=== PATIENT | female | born 1940 | race Asian ===

== ENCOUNTER 2016-11-21 13:46 | Outpatient (CLI) | payer MEDICARE, OTHER | END 2016-11-21 23:59 | DX: I50.9 Heart failure, unspecified (principal); I42.8 Other cardiomyopathies; Z79.01 Long term (current) use of anticoagulants; Z51.81 Encounter for therapeutic drug level monitoring ==

== ENCOUNTER 2016-12-10 13:49 | Outpatient (CLI) | payer MEDICARE, OTHER | END 2016-12-10 23:59 | DX: I50.9 Heart failure, unspecified (principal); I42.8 Other cardiomyopathies; Z79.01 Long term (current) use of anticoagulants ==

== ENCOUNTER 2017-01-02 13:11 | Outpatient (CLI) | payer MEDICARE, OTHER | END 2017-01-02 23:59 | DX: I10 Essential (primary) hypertension (principal); R53.83 Other fatigue ==

== ENCOUNTER 2017-01-02 13:13 | Outpatient (CLI) | payer MEDICARE, OTHER | END 2017-01-02 23:59 | DX: Z79.01 Long term (current) use of anticoagulants (principal); Z51.81 Encounter for therapeutic drug level monitoring; I50.9 Heart failure, unspecified; I42.8 Other cardiomyopathies ==

== ENCOUNTER 2017-02-02 14:35 | Outpatient (CLI) | payer MEDICARE, OTHER | END 2017-02-02 14:36 | DX: Z79.01 Long term (current) use of anticoagulants (principal); Z51.81 Encounter for therapeutic drug level monitoring; I50.9 Heart failure, unspecified; I42.8 Other cardiomyopathies ==

== ENCOUNTER 2017-08-11 12:43 | Outpatient (CLI) | payer MEDICARE, OTHER ==
[2017-08-11 13:24] LABS: BASOPHILS # (AUTO) 0.1 10^3/uL (0.0-0.1); EOSINOPHILS # (AUTO) 0.4 10^3/uL (0.0-0.7); EOSINOPHILS % (AUTO) 3.6 %; HCT - HEMATOCRIT 37.1 % (37.0-47.0); HGB - HEMOGLOBIN 12.5 g/dL (12.0-16.0); LYMPHOCYTES # (AUTO) 1.4 10^3/uL (1.5-3.5); MEAN CORPUSCULAR HEMOGLOBIN 31.9 pg (27.0-31.0); MEAN CORPUSCULAR HGB CONC 33.6 g/dL (32.0-36.0); MEAN PLATELET VOLUME 6.4 fL (7.9-10.8); MONOCYTES # (AUTO) 0.3 10^3/uL (0.0-1.0); MONOCYTES % (AUTO) 3.5 %; NEUTROPHILS # (AUTO) 7.4 10^3/uL (1.5-6.6); NEUTROPHILS % (AUTO) 76.9 %; NUCLEATED RED BLOOD CELLS AUTO 0.1 /100WBC; RED CELL DISTRIBUTION WIDTH 16.6 % (12.0-15.0); UNCORRECTED WHITE BLOOD COUNT 9.7 x10^3/uL; WHITE BLOOD COUNT 9.7 x10^3/uL (4.8-10.8)
[2017-08-11 13:37] LABS: BILIRUBIN,TOTAL 0.5 mg/dL (0.2-1.0); CALCIUM 9.5 mg/dL (8.5-10.3); CREATININE 1.2 mg/dL (0.4-1.0); POTASSIUM 4.8 mmol/L (3.5-5.0)
[2017-08-11] MEDS ORDERED: IOPAMIDOL-300 100 ML VIAL ONE (14:56)
[2017-08-11] MEDS ORDERED: IOPAMIDOL-300 100 ML VIAL IVP ONE ×2 (15:31)
--- NOTE | 2017-08-11 19:06 | XRAY Report ---
TWO VIEW CHEST: 08/11/2017 CLINICAL INDICATION: COPD exacerbation. Frontal and lateral views of the chest demonstrate a normal cardiac silhouette. A three lead pacemak er/AICD is in place. The lungs are hyperinflated, but clear. No effusion or pneumothorax is present . IMPRESSION: COPD, BUT NO EVIDENCE OF ACUTE CARDIOPULMONARY DISEASE. JOB #: [id number] EXT JOB #:[id number]
--- NOTE | 2017-08-12 14:02 | CT Report ---
EXAM: CT CHEST 08/11/2017 INDICATION: Dyspnea on exertion. TECHNIQUE: Axial CT images of the chest were obtained with 80 mL Isovue-300 intravenously. In accordance with CT protocol optimization, one or more of the following dose reduction techniques were utilized for this exam: automated exposure control, adjustment of mA and/or KV based on patient size, or use of iterative reconstructive technique. COMPARISON: No previous CT is available for comparison. FINDINGS: The heart and great vessels were unremarkable. Pacemaker is in place. No hilar or mediastinal lymphadenopathy is seen. There is no evidence of pulmonary embolus. The lungs demonstrate emphysema. No focal infiltrate, effusion, or pneumothorax is present. Limited evaluation of upper abdominal structures demonstrates normal adrenal glands. Osseous structures demonstrate degenerative changes. IMPRESSION: EMPHYSEMA. NO EVIDENCE OF PULMONARY EMBOLUS OR OTHER ETIOLOGY FOR DYSPNEA. JOB #: [id number] EXT JOB #: [id number] [facility]
== END 2017-08-11 12:44 | disposition home or self-care (01) ==
LOC: LAB 12:43 → DI 12:44
PROVIDERS: ATTEND Family Medicine
DX: J43.9 Emphysema, unspecified (principal); I50.9 Heart failure, unspecified
CPT/HCPCS: 36415; 71020; 71260; 80053; 83880; 85025; Q9967

== ENCOUNTER 2018-06-04 13:17 | Outpatient (CLI) | payer MEDICARE, OTHER ==
[2018-06-04 18:50] LABS: BASOPHILS % (AUTO) 0.9 %; EOSINOPHILS # (AUTO) 0.3 10^3/uL (0.0-0.7); EOSINOPHILS % (AUTO) 5.8 %; LYMPHOCYTES # (AUTO) 0.9 10^3/uL (1.5-3.5); LYMPHOCYTES % (AUTO) 16.2 %; MEAN CORPUSCULAR HEMOGLOBIN 32.4 pg (27.0-31.0); MEAN CORPUSCULAR HGB CONC 33.2 g/dL (32.0-36.0); MEAN CORPUSCULAR VOLUME 97.5 fL (81.0-99.0); MEAN PLATELET VOLUME 7.3 fL (7.9-10.8); MONOCYTES # (AUTO) 0.6 10^3/uL (0.0-1.0); MONOCYTES % (AUTO) 10.7 %; NEUTROPHILS # (AUTO) 3.6 10^3/uL (1.5-6.6); NEUTROPHILS % (AUTO) 66.4 %; PLT - PLATELET COUNT 154 10^3/uL (130-450); RED CELL DISTRIBUTION WIDTH 15.9 % (12.0-15.0); WHITE BLOOD COUNT 5.5 x10^3/uL (4.8-10.8)
[2018-06-04 19:11] LABS: ALBUMIN 4.5 g/dL (3.2-5.5); ALBUMIN/GLOBULIN RATIO 1.9 (1.0-2.2); BILIRUBIN,TOTAL 0.9 mg/dL (0.2-1.0); CALCIUM 9.1 mg/dL (8.5-10.3); CREATININE 1.2 mg/dL (0.4-1.0); TOTAL PROTEIN 6.9 g/dL (6.7-8.2)
== END 2018-06-04 13:18 | disposition home or self-care (01) ==
LOC: LAB.WCP 13:17
PROVIDERS: ATTEND Family Medicine
DX: Z79.899 Other long term (current) drug therapy (principal); I50.9 Heart failure, unspecified; R53.83 Other fatigue
CPT/HCPCS: 36415; 80053; 84443; 85025

== ENCOUNTER 2018-08-24 11:50 | Outpatient (CLI) | payer MEDICARE, OTHER | END 2018-08-24 11:51 | disposition critical access hospital (66) | LOC: EMS 11:50 | PROVIDERS: ATTEND Surgery | DX: M25.551 Pain in right hip (principal); R11.2 Nausea with vomiting, unspecified | CPT/HCPCS: A0425; A0429 ==

== ENCOUNTER 2018-08-24 12:22 | Emergency (ER) | payer MEDICARE, OTHER ==
[2018-08-24 12:39] VITALS: BP 131/74
[2018-08-24] MEDS ORDERED: HYDROcod/ACETAM 5/325 MG TABLET PO STA (12:55)
[2018-08-24] MEDS ORDERED: DEXAMETHASONE 10 MG/ML VIAL PO STA (12:55)
--- NOTE | 2018-08-24 12:58 | ED Physician Documentation ---
PD HPI BACK PAIN - Stated complaint Stated Complaint: R HIP PX - Chief complaint Chief Complaint: Ext Problem - History obtained from History obtained from: Patient, Family - History of Present Illness Timing - onset: How many days ago (5) Timing - duration: Days Timing - details: Abrupt onset, Still present Location: Lower, Right Quality: Pain, Spasm, Sharp Associated symptoms: No: Fever, Weakness, Numbness, Incontinent of urine, Unable to urinate, Hematuria, Incontinent of stool Improves with: Rest, Position Worsened by: Movement Similar symptoms before: No diagnosis Recently seen: Not recently seen - Additional information Additional information: 78-year-old female with a history of emphysema has developed pain in the right l ower back extending into the buttocks and down the right leg. She started with pain in the lateral aspect of her right calf that is extended up to the lateral aspect of the thigh and now into the back as well. She does not note a specific injury that led to this exacerbation of pain. Review of Systems Constitutional: denies: Fever Eyes: denies: Decreased vision Ears: denies: Ear pain Nose: denies: Congestion Throat: denies: Sore throat Cardiac: denies: Chest pain / pressure, Palpitations Respiratory: reports: Dyspnea GI: denies: Abdominal Pain, Abdominal Swelling, Nausea, Vomiting : denies: Dysuria, Frequency Skin: denies: Rash Musculoskeletal: reports: Back pain, Extremity pain. denies: Neck pain Neurologic: denies: Generalized weakness, Focal weakness, Numbness PD PAST MEDICAL HISTORY - Present Medications Home Medications: Ambulatory Orders Medication Instructions Recorded Confirmed Cyclobenzaprine [Flexeril] 10 mg PO TID PRN #20 tablet 08/24/18 Hydrocodone/Acetaminophen 1 - 2 each PO Q6H PRN #14 tablet 08/24/18 [Hydrocodon-Acetaminophen 5-325] - Allergies Allergies/Adverse Reactions: Allergies Allergy/AdvReac Type Severity Reaction Status Date / Time antibiotic Allergy Unknown Uncoded 08/24/18 12:39 PD ED PE NORMAL - Vitals Vital signs reviewed: Yes - General General: Alert and oriented X 3, Well developed/nourished, Other (hydrologic engineer tone and flat affect) - HEENT HEENT: Atraumatic, PERRL, EOMI - Respiratory Respiratory: No respiratory distress - Back Back: No CVA TTP, Other (There is tenderness to the paraspinous muscles on the right side extending into the sciatic notch. ) - Derm Derm: Normal color, Warm and dry, No rash - Extremities Extremities: No deformity, No edema, Other (There is normal ROM of the LE and there is no tenderness to the soft tissues of the LE posterior or lateral) - Neuro Neuro: Alert and oriented X 3, clinical psychology teacher 2-12 intact, No motor deficit, No sensory deficit, Normal speech Eye Opening: Spontaneous Motor: Obeys Commands Verbal: Oriented GCS Score: 15 - Psych Psych: Normal mood, Normal affect Results - Vitals Vitals: Vital Signs - 24 hr 08/24/18 12:28 Temperature 36.2 C L Heart Rate 100 Respiratory 18 Rate Blood Pressure 131/74 H O2 Saturation 100 Oxygen O2 Source Room air PD MEDICAL DECISION MAKING - ED course Complexity details: reviewed old records, considered differential, d/w patient, d/w family ED course: 78-year-old female with a history of sciatica on the right side is administered dexamethasone 10 mg orally and hydrocodone. Will place her on some pain medication muscle relaxant. I have indicated the patient that she is to expect some improvement of the for the next 2-3 days and should she have a recurrence of this or worsening of this pain to follow-up with her primary care doctor as further testing is indicated. Departure - Departure Disposition: 01 Home, Self Care Clinical Impression: Sciatica Qualifiers: Laterality: right Qualified Code(s): M54.31 - Sciatica, right side Condition: Stable Instructions: ED Sciatica Follow-Up: Estefany Cazares MD [Primary Care Provider] - Prescriptions: Cyclobenzaprine [Flexeril] 10 mg PO TID PRN #20 tablet PRN Reason: Spasms Hydrocodone/Acetaminophen [Hydrocodon-Acetaminophen 5-325] 1 - 2 each PO Q6H PRN #14 tablet PRN Reason: pain
[2018-08-24] MEDS ORDERED: CHERRY SYRUP 10 ML UDC PO ONE (13:09)
== END 2018-08-24 13:10 | disposition home or self-care (01) ==
LOC: EDUNIT# → ED 12:22
DX: M54.31 Sciatica, right side (principal)
CPT/HCPCS: 99283; A9270

== ENCOUNTER 2018-08-27 13:23 | Outpatient (CLI) | payer MEDICARE, OTHER ==
--- NOTE | 2018-08-28 14:25 | XRAY Report ---
Reason: HIP PAIN, RT, REPEATED FALLS, PAIN RT LOWER LEG Procedure Date: 08/27/2018 Accession Number: [id number] / [id number] Procedure: XR - Knee 2 View RT CPT Code: FULL RESULT: EXAM: RIGHT KNEE RADIOGRAPHY EXAM DATE: 08/27/2018 02:16 PM. CLINICAL HISTORY: HIP PAIN, RT, REPEATED FALLS, PAIN RT LOWER LEG. COMPARISON: None. TECHNIQUE: 3 views. FINDINGS: Bones: No fractures or bone lesions. Joints: No effusion. No subluxations. Soft Tissues: There is mild lateral soft tissue swelling. IMPRESSION: Mild lateral knee soft tissue swelling without evidence of fracture, dislocation or knee joint effusion. RADIA
--- NOTE | 2018-08-28 14:27 | XRAY Report ---
Reason: HIP PAIN, RT, REPEATED FALLS, PAIN RT LOWER LEG Procedure Date: 08/27/2018 Accession Number: [id number] / [id number] Procedure: XR - Ankle 3 View RT CPT Code: FULL RESULT: EXAM: RIGHT ANKLE RADIOGRAPHY EXAM DATE: 08/27/2018 02:16 PM. CLINICAL HISTORY: HIP PAIN, RT, REPEATED FALLS, PAIN RT LOWER LEG. COMPARISON: None. TECHNIQUE: 3 views. FINDINGS: Bones: No fractures or bone lesions. Joints: No effusion. No subluxations. The ankle mortise is normally aligned. Soft Tissues: No soft tissue swelling. IMPRESSION: Negative right ankle radiography. [facility]
--- NOTE | 2018-08-28 14:29 | XRAY Report ---
Reason: HIP PAIN, RT, REPEATED FALLS, PAIN IN RT LOWER LEG Procedure Date: 08/27/2018 Accession Number: [id number] / [id number] Procedure: XR - Hip w/Pelvis 2-3V RT CPT Code: FULL RESULT: EXAM: RIGHT HIP RADIOGRAPHY EXAM DATE: 08/27/2018 02:16 PM. CLINICAL HISTORY: HIP PAIN, RT, REPEATED FALLS, PAIN IN RT LOWER LEG. COMPARISON: None. TECHNIQUE: 2 views. FINDINGS: Bones and Joints: No fractures or bone lesion. A right/left hip arthroplasty has been performed. No unexpected periprosthetic lucency or other evidence of loosening. The contralateral hip and other joint spaces are unremarkable. Moderate degenerative process in the lower lumbar spine. Soft Tissues: No soft tissue swelling. IMPRESSION: Expected appearance of hip arthroplasty. Negative for fracture, dislocation or subluxation. RADIA
--- NOTE | 2018-08-28 14:29 | XRAY Report ---
Reason: HIP PAIN, RT, REPEATED FALLS, PAIN RT LOWER LEG Procedure Date: 08/27/2018 Accession Number: [id number] / [id number] Procedure: XR - Tib/Fib RT CPT Code: FULL RESULT: EXAM: RIGHT TIBIA/FIBULA RADIOGRAPHY EXAM DATE: 08/27/2018 02:16 PM. CLINICAL HISTORY: HIP PAIN, RT, REPEATED FALLS, PAIN RT LOWER LEG. COMPARISON: None. TECHNIQUE: 2 views. FINDINGS: Bones: No fracture or bone lesion. Joints: The visualized knee and ankle joints are normal. No effusions. Soft Tissues: No soft tissue swelling. IMPRESSION: Negative right tibia/fibula radiography. [facility]
== END 2018-08-27 13:24 | disposition home or self-care (01) ==
LOC: DI 13:23
PROVIDERS: ATTEND Family Medicine
DX: M25.551 Pain in right hip (principal); M79.661 Pain in right lower leg; M25.461 Effusion, right knee; R29.6 Repeated falls; Z96.643 Presence of artificial hip joint, bilateral

== ENCOUNTER 2018-09-02 08:00 | Outpatient (CLI) | payer MEDICARE, OTHER ==
[2018-09-02 19:09] LABS: BASOPHILS % (AUTO) 0.1 %; EOSINOPHILS % (AUTO) 0.4 %; HGB - HEMOGLOBIN 12.8 g/dL (12.0-16.0); LYMPHOCYTES % (AUTO) 4.5 %; MEAN CORPUSCULAR HEMOGLOBIN 30.5 pg (27.0-31.0); MEAN CORPUSCULAR VOLUME 95.3 fL (81.0-99.0); MONOCYTES % (AUTO) 4.7 %; NEUTROPHILS % (AUTO) 90.3 %; PLT - PLATELET COUNT 233 10^3/uL (130-450); RED BLOOD COUNT 4.21 10^6/uL (4.20-5.40); RED CELL DISTRIBUTION WIDTH 14.8 % (12.0-15.0); WHITE BLOOD COUNT 24.4 x10^3/uL (4.8-10.8)
[2018-09-02 19:11] LABS: ABNORMAL LYMPHS % (MANUAL) 0 %
[2018-09-02 19:19] LABS: ALBUMIN 3.7 g/dL (3.2-5.5); ALBUMIN/GLOBULIN RATIO 1.2 (1.0-2.2); ALKALINE PHOSPHATASE 84 IU/L (42-121); ALT ALANINE AMINOTRANSFERASE 26 IU/L (10-60); AST ASPARTATE AMINOTRANSFERASE 26 IU/L (10-42); BILIRUBIN,TOTAL 0.5 mg/dL (0.2-1.0); BUN - BLOOD UREA NITROGEN 22 mg/dL (6-20); CALCIUM 8.9 mg/dL (8.5-10.3); CARBON DIOXIDE - CO2 28 mmol/L (21-32); CHLORIDE 99 mmol/L (101-111); GFR - MDRD 54 (>89); GLUCOSE 89 mg/dL (70-100); SODIUM 136 mmol/L (135-145); TOTAL PROTEIN 6.9 g/dL (6.7-8.2)
[2018-09-02 19:28] LABS: BAND NEUTROPHILS % (MANUAL) 2 %; DIFFERENTIAL COMMENT MANUAL DIFFERENTIAL; EOSINOPHILS # (MANUAL) 0.2 10^3/uL (0-0.7); LYMPHOCYTES # (MANUAL) 1.5 10^3/uL (1.5-3.5); LYMPHOCYTES % (MANUAL) 6 %; NEUTROPHILS # (MANUAL) 21.7 10^3/uL (1.5-6.6); NEUTROPHILS % (MANUAL) 87 %; PLATELET ESTIMATE, MANUAL NORMAL (130-450,000) (NORMAL); PLATELET MORPHOLOGY NORMAL APPEARANCE (NORMAL); RBC MORPHOLOGY (MULTIPLE) NORMAL APPEARANCE (NORMAL)
[2018-09-02 19:35] LABS: THYROID STIMULATING HORMONE 21.24 uIU/mL (0.34-5.60)
[2018-09-02 20:07] LABS: FREE T4 (FREE THYROXINE) 0.44 ng/dL (0.58-1.64)
== END 2018-09-02 23:59 | disposition home or self-care (01) ==
LOC: LAB.WCP 08:00
PROVIDERS: ATTEND Family Medicine
DX: Z79.899 Other long term (current) drug therapy (principal); I10 Essential (primary) hypertension; R53.1 Weakness
CPT/HCPCS: 36415; 80053; 84439; 84443; 85025

== ENCOUNTER 2018-12-17 08:00 | Outpatient (CLI) | payer MEDICARE, OTHER ==
[2018-12-17 18:45] LABS: BASOPHILS % (AUTO) 0.7 %; EOSINOPHILS # (AUTO) 0.2 10^3/uL (0.0-0.7); EOSINOPHILS % (AUTO) 2.9 %; HGB - HEMOGLOBIN 12.6 g/dL (12.0-16.0); LYMPHOCYTES # (AUTO) 1.2 10^3/uL (1.5-3.5); LYMPHOCYTES % (AUTO) 19.5 %; MEAN CORPUSCULAR HEMOGLOBIN 30.7 pg (27.0-31.0); MEAN CORPUSCULAR HGB CONC 32.7 g/dL (32.0-36.0); MEAN PLATELET VOLUME 7.4 fL (7.9-10.8); MONOCYTES # (AUTO) 0.5 10^3/uL (0.0-1.0); MONOCYTES % (AUTO) 8.6 %; NEUTROPHILS # (AUTO) 4.1 10^3/uL (1.5-6.6); NEUTROPHILS % (AUTO) 68.3 %; PLT - PLATELET COUNT 128 10^3/uL (130-450); RED BLOOD COUNT 4.09 10^6/uL (4.20-5.40); RED CELL DISTRIBUTION WIDTH 14.6 % (12.0-15.0); WHITE BLOOD COUNT 6.1 x10^3/uL (4.8-10.8)
[2018-12-17 19:13] LABS: ALBUMIN 4.7 g/dL (3.2-5.5); ALBUMIN/GLOBULIN RATIO 1.8 (1.0-2.2); BILIRUBIN,TOTAL 0.5 mg/dL (0.2-1.0); CALCIUM 9.4 mg/dL (8.5-10.3); CREATININE 1.1 mg/dL (0.4-1.0); TOTAL PROTEIN 7.3 g/dL (6.7-8.2)
== END 2018-12-17 23:59 | disposition home or self-care (01) ==
LOC: LAB.WCP 08:00
PROVIDERS: ATTEND Family Medicine
DX: Z79.899 Other long term (current) drug therapy (principal); R53.83 Other fatigue; I10 Essential (primary) hypertension; J44.9 Chronic obstructive pulmonary disease, unspecified
CPT/HCPCS: 36415; 80053; 84443; 85025

== ENCOUNTER 2018-12-20 08:00 | Outpatient (CLI) | payer MEDICARE, OTHER ==
[2018-12-20 18:50] LABS: BILIRUBIN,URINE NEGATIVE (NEGATIVE); GLUCOSE, URINE (UA) NEGATIVE (NEGATIVE); KETONES,URINE (UA) TRACE mg/dL (NEGATIVE); LEUKOCYTE ESTERASE, URINE TRACE (NEGATIVE); NITRITE,URINE POSITIVE (NEGATIVE); OCCULT BLOOD,URINE LARGE (NEGATIVE); PROTEIN,URINE 30 mg/dL (NEGATIVE); UROBILINOGEN,URINE 1 (NORMAL) E.U./dL (NORMAL)
[2018-12-20 18:52] LABS: CLARITY,URINE CLOUDY (CLEAR)
[2018-12-20 19:05] LABS: BACTERIA,URINE Few /HPF (None Seen); RBC,URINE TNTC /HPF (0-5); SQUAMOUS EPITHELIAL CELL,UR NONE SEEN (<= Few)
== END 2018-12-20 23:59 | disposition home or self-care (01) ==
LOC: LAB.R 08:00
PROVIDERS: ATTEND Nurse Practitioner
DX: R31.9 Hematuria, unspecified (principal)
CPT/HCPCS: 81001; 81003; 87077; 87086; 87181

== ENCOUNTER 2019-01-04 12:50 | Outpatient (CLI) | payer MEDICARE, OTHER ==
[2019-01-04] MEDS ORDERED: IOVERSOL 320 100 ML VIAL IVP ONE ×2 (13:26→13:45)
--- NOTE | 2019-01-04 14:14 | CT Report ---
Reason: HEMATURIA Procedure Date: 01/04/2019 Accession Number: [id number] / [id number] Procedure: CT - ABDOMEN/PELVIS W/WO CPT Code: FULL RESULT: EXAM: CT ABDOMEN AND PELVIS WITHOUT AND WITH CONTRAST (CT IVP) EXAM DATE: 01/04/2019 01:58 PM. CLINICAL HISTORY: Hematuria. COMPARISONS: None. TECHNIQUE: Routine helical imaging was performed through the kidneys, ureters and bladder in the precontrast, postcontrast and delayed phase. IV Contrast: OPTI 320 100 mL. Reconstructions: Coronal and sagittal. In accordance with CT protocol optimization, one or more of the following dose reduction techniques were utilized for this exam: automated exposure control, adjustment of mA and/or KV based on patient size, or use of iterative reconstructive technique. FINDINGS: Lung Bases: Pacemaker leads are noted. Liver: Normal. No masses. Gallbladder/Bile Ducts: Status post cholecystectomy. Spleen: Normal. Pancreas: Normal. Adrenal Glands: Normal. Kidneys/Bladder: Right Kidney/Ureter: No renal or ureteral stones. No hydronephrosis or hydroureter. No masses. Left Kidney/Ureter: No renal or ureteral stones. No hydronephrosis or hydroureter. No masses. Bladder: Limited evaluation due to streak artifact from the total hip arthroplasty on the left. No stones are detected. No wall thickening or mass is detected.. Peritoneal Cavity/Bowel: No bowel obstruction, free fluid or free air. Pelvic Organs: Visualized pelvic organs are unremarkable. Vasculature: Atherosclerosis without aneurysm. Bones: No aggressive osseous lesions. Other: None. IMPRESSION: No urinary tract masses, stones or obstruction detected. Somewhat decreased sensitivity for evaluation of the bladder due to streak artifact from the hip arthroplasty. [facility]
== END 2019-01-04 12:51 | disposition home or self-care (01) ==
LOC: DI 12:50
PROVIDERS: ATTEND Nurse Practitioner
DX: R31.9 Hematuria, unspecified (principal)
CPT/HCPCS: 74178; Q9967

== ENCOUNTER 2019-01-11 11:00 | Outpatient (CLI) | payer MEDICARE, OTHER ==
[2019-01-11 19:10] LABS: GLUCOSE, URINE (UA) NEGATIVE (NEGATIVE); KETONES,URINE (UA) TRACE mg/dL (NEGATIVE); LEUKOCYTE ESTERASE, URINE NEGATIVE (NEGATIVE); NITRITE,URINE NEGATIVE (NEGATIVE); OCCULT BLOOD,URINE NEGATIVE (NEGATIVE); PROTEIN,URINE NEGATIVE (NEGATIVE); UROBILINOGEN,URINE 0.2 (NORMAL) E.U./dL (NORMAL)
[2019-01-11 19:23] LABS: BILIRUBIN,URINE SMALL (NEGATIVE); CLARITY,URINE CLEAR (CLEAR); ICTOTEST,URINE POSITIVE
== END 2019-01-11 11:01 | disposition home or self-care (01) ==
LOC: LAB.WCP 11:00
PROVIDERS: ATTEND Nurse Practitioner
DX: R31.9 Hematuria, unspecified (principal)
CPT/HCPCS: 81001; 81003; 87086

== ENCOUNTER 2019-01-11 12:37 | Outpatient (CLI) | payer MEDICARE, OTHER | END 2019-01-11 12:38 | disposition critical access hospital (66) | LOC: EMS 12:37 | PROVIDERS: ATTEND Surgery | DX: S09.90XA Unspecified injury of head, initial encounter (principal); R51 Headache; M25.562 Pain in left knee; M25.561 Pain in right knee; M25.512 Pain in left shoulder; M25.511 Pain in right shoulder; W18.30XA Fall on same level, unspecified, initial encounter; Y93.89 Activity, other specified; Y92.009 Unspecified place in unspecified non-institutional (private) residence as the place of occurrence of the external cause | CPT/HCPCS: A0425; A0429 ==

== ENCOUNTER 2019-01-11 12:54 | Emergency (ER) | payer MEDICARE, OTHER ==
--- NOTE | 2019-01-11 13:16 | ED Physician Documentation ---
PD HPI Fall - Stated complaint Stated Complaint: GLF - Chief complaint Chief Complaint: Trauma Ext - History obtained from History obtained from: Patient - History of Present Illness Mechanism of injury: Slipped (She was grocery shoping, turned around and became vertiginous. Fell down and hit head, knees and hands/wrists. No LOC. C/O severe headache. Wrists not too bad and R knee hurts.) Review of Systems Ten Systems: 10 systems reviewed and negative Constitutional: reports: Reviewed and negative Nose: reports: Reviewed and negative Throat: reports: Reviewed and negative Cardiac: reports: Reviewed and negative PD PAST MEDICAL HISTORY - Past Medical History Past Medical History: Yes Cardiovascular: Congestive heart failure, Hypertension, Atrial fibrillation Respiratory: COPD - Past Surgical History Past Surgical History: Yes Cardiovascular: Pacemaker, AICD - Present Medications Home Medications: Ambulatory Orders Medication Instructions Recorded Confirmed Cyclobenzaprine [Flexeril] 10 mg PO TID PRN #20 tablet 08/24/18 Digoxin 0 mg 08/24/18 Furosemide [Lasix] 0 mg 08/24/18 Hydrocodone/Acetaminophen 1 - 2 each PO Q6H PRN #14 tablet 08/24/18 [Hydrocodon-Acetaminophen 5-325] Levalbuterol [Xopenex] 0 mg 08/24/18 Levothyroxine [Synthroid] 0 mg 08/24/18 Lisinopril 5 mg 08/24/18 Methotrexate 0 mg 08/24/18 Spironolactone 25 mg PO 08/24/18 Tramadol HCl 0 mg 08/24/18 Hydrocodone/Acetaminophen 1 - 2 each PO Q6H PRN #14 tablet 01/11/19 [Hydrocodon-Acetaminophen 5-325] - Allergies Allergies/Adverse Reactions: Allergies Allergy/AdvReac Type Severity Reaction Status Date / Time oxytetracycline Allergy Rash Verified 01/11/19 12:56 [From Terramycin] albuterol AdvReac afib Verified 01/11/19 12:56 antibiotic Allergy Unknown Uncoded 01/11/19 12:56 - Social History Does the pt smoke?: No Smoking Status: Never smoker Does the pt drink ETOH?: No Does the pt have substance abuse?: No - Immunizations Immunizations are current?: Yes PD ED PE NORMAL - Vitals Vital signs reviewed: Yes - General General: Alert and oriented X 3, No acute distress - HEENT HEENT: PERRL, EOMI, Other - Neck Neck: Supple, no meningeal sign, No bony TTP - Back Back: No spinal TTP - Extremities Extremities: Other (Tenderness to the distal lateral knee on the right without effusion or limited range of motion. Mild tenderness to the lateral malleolus of the right ankle. Wrists are nontender as her hands.) - Neuro Neuro: Alert and oriented X 3, Normal speech Results - Vitals Vitals: Vital Signs - 24 hr 01/11/19 01/11/19 12:56 13:01 Temperature 36.6 C 36.6 C Heart Rate 78 78 Respiratory 16 16 Rate Blood Pressure 118/57 L 118/57 L O2 Saturation 99 99 Oxygen O2 Source Room air PD MEDICAL DECISION MAKING - ED course ED course: 78-year-old woman with chronic recurrent vertigo presents after a fall due to same. She has multiple muscular skeletal injuries and can search for head injury, but her scans are negative. She does have a large contusion over the right forehead with a developing black eye. She was able to walk and bear weight here without issue. Departure - Departure Disposition: 01 Home, Self Care Clinical Impression: Vertigo Head injury Qualifiers: Encounter type: initial encounter Qualified Code(s): S09.90XA - Unspecified injury of head, initial encounter Forehead contusion Qualifiers: Encounter type: initial encounter Qualified Code(s): S00.83XA - Contusion of other part of head, initial encounter Knee contusion Qualifiers: Encounter type: initial encounter Ankle sprain Qualifiers: Encounter type: initial encounter Involved ligament of ankle: anterior talofibular ligament Laterality: right Qualified Code(s): S93.491A - Sprain of other ligament of right ankle, initial encounter Condition: Good Record reviewed to determine appropriate education?: Yes Instructions: ED Head Injury Closed Prescriptions: Hydrocodone/Acetaminophen [Hydrocodon-Acetaminophen 5-325] 1 - 2 each PO Q6H PRN #14 tablet PRN Reason: pain Comments: Call your doctor to arrange a follow-up appointment, make the next available appointment. In the interim, return anytime if worse or if new symptoms develop. Do not drink or drive while taking narcotic pain medication. Note that many narcotic pain relievers also contain Tylenol/acetaminophen. Please ensure that your total dose of acetaminophen from all sources does not exceed 3 g (3000 mg) per day. You may get constipated while on this medication. Take a stool softener such as Colace twice a day while you are on it. Also add an rxnm-nin-qoodwam laxative such as senna or MiraLAX on any day that you do not have a bowel movement. If you received a narcotic pain medication or sedative while in the emergency department, do not drive for the next 24 hours.
[2019-01-11] MEDS ORDERED: HYDROmorphone 1 MG/ML CARPUJECT IM STA (13:18)
--- NOTE | 2019-01-11 14:01 | CT Report ---
Reason: head inj Procedure Date: 01/11/2019 Accession Number: [id number] / [id number] Procedure: CT - HEAD WO CPT Code: FULL RESULT: EXAM: CT HEAD EXAM DATE: 01/11/2019 01:38 PM. CLINICAL HISTORY: Headache from closed head injury. COMPARISON: None. TECHNIQUE: Multiaxial CT images were obtained from the foramen magnum to the vertex. Reformats: Sagittal and coronal. IV contrast: None. In accordance with CT protocol optimization, one or more of the following dose reduction techniques were utilized for this exam: automated exposure control, adjustment of mA and/or KV based on patient size, or use of iterative reconstructive technique. FINDINGS: Parenchyma: No intraparenchymal hemorrhage. No evidence of mass, midline shift, or CT findings of infarction. Costello-white differentiation is distinct. Age-appropriate atrophy. Extraaxial Spaces: Normal for age. No subdural or epidural collections identified. Ventricles: Normal in size and position. Sinuses and Orbits: Imaged paranasal sinuses, orbits, and mastoids show no significant abnormality. Bones: No evidence of fracture or calvarial defect. Other: Right anterior convexity soft tissue swelling without fracture. IMPRESSION: No acute intracranial abnormality. RADIA
--- NOTE | 2019-01-11 14:06 | CT Report ---
Reason: head inj Procedure Date: 01/11/2019 Accession Number: [id number] / [id number] Procedure: CT - CERVICAL SPINE WO CPT Code: FULL RESULT: EXAM: CT CERVICAL SPINE WITHOUT CONTRAST DATE: 01/11/2019 01:38 PM. HISTORY: Blunt trauma. Neck pain. COMPARISONS: None. TECHNIQUE: Thin-section axial images were acquired of the cervical spine without contrast. Post-processing: Coronal and sagittal reformats. Other: None. In accordance with CT protocol optimization, one or more of the following dose reduction techniques were utilized for this exam: automated exposure control, adjustment of mA and/or KV based on patient size, or use of iterative reconstructive technique. FINDINGS: Alignment: No scoliosis or spondylolisthesis. Bones: No fracture or bone lesion. Interspace Levels/Facets: Moderate degenerative disk disease at C5-C6, C6-C7 and C7-T1. No evidence of subluxation or malalignment. Multilevel facet arthropathy. Other: The paravertebral and prevertebral soft tissues are unremarkable. The lung apices are clear. IMPRESSION: No acute fracture or malalignment. [facility]
--- NOTE | 2019-01-11 14:07 | XRAY Report ---
Reason: ankle inj Procedure Date: 01/11/2019 Accession Number: [id number] / [id number] Procedure: XR - Ankle 3 View RT CPT Code: FULL RESULT: EXAM: RIGHT ANKLE RADIOGRAPHY EXAM DATE: 01/11/2019 01:54 PM. CLINICAL HISTORY: Ankle pain from recent injury. COMPARISON: ANKLE 3 VIEW RT 08/27/2018 1:56 PM. TECHNIQUE: 3 views. FINDINGS: Bones: Normal. No fractures or bone lesions. Joints: Normal. No effusion. No subluxations. The ankle mortise is normally aligned. Soft Tissues: Normal. No soft tissue swelling. IMPRESSION: Normal ankle radiography. [facility]
--- NOTE | 2019-01-11 14:08 | XRAY Report ---
Reason: knee inj Procedure Date: 01/11/2019 Accession Number: [id number] / [id number] Procedure: XR - Knee 4 View RT CPT Code: FULL RESULT: EXAM: RIGHT KNEE RADIOGRAPHY EXAM DATE: 01/11/2019 01:54 PM. CLINICAL HISTORY: Knee pain from recent injury. COMPARISON: KNEE 2 VIEW RT 08/27/2018 1:56 PM. TECHNIQUE: 3 views. FINDINGS: Bones: No significant osteoarthritis. No evidence of fracture. Mild bone spur superior patella at the insertion site of quadriceps mechanism. Joints: Normal. No effusion. No subluxations. Soft Tissues: Normal. No soft tissue swelling. IMPRESSION: No acute abnormality. Negative for fracture or joint effusion. [facility]
[2019-01-11 14:41] VITALS: BP 131/88
== END 2019-01-11 14:35 | disposition home or self-care (01) ==
LOC: EDUNIT# → ED 12:54
DX: S09.90XA Unspecified injury of head, initial encounter (principal); R42 Dizziness and giddiness; S00.83XA Contusion of other part of head, initial encounter; S80.01XA Contusion of right knee, initial encounter; S93.491A Sprain of other ligament of right ankle, initial encounter; W18.39XA Other fall on same level, initial encounter; Y93.89 Activity, other specified; Y92.512 Supermarket, store or market as the place of occurrence of the external cause; I10 Essential (primary) hypertension; Z95.810 Presence of automatic (implantable) cardiac defibrillator; R31.9 Hematuria, unspecified
CPT/HCPCS: 70450; 72125; 73564; 73610; 81003; 96372; 99283; J1170